=== PATIENT | male | born 1990 | race African-American/Black ===

== ENCOUNTER 2023-07-06 09:25 | Outpatient (CLI) | payer OTHER, SELFPAY ==
[2023-07-06 10:15] LABS: Creatine Kinase 166 U/L (55-170)
[2023-07-06 10:19] LABS: Erythrocyte Sedimentation Rate 20 mm/hr (0-20)
== END 2023-07-06 09:26 | disposition home or self-care (01) ==
LOC: ANHLAB 09:28
PROVIDERS: Visit Provider Internal Medicine
DX: M19.90 Unspecified osteoarthritis, unspecified site (principal); M60.9 Myositis, unspecified; M62.82 Rhabdomyolysis
CPT/HCPCS: 36415; 82085; 82550; 85652; 86140

== ENCOUNTER 2023-10-02 09:49 | Outpatient (CLI) | payer OTHER, SELFPAY ==
[2023-10-02 10:34] LABS: CRP 2.2 mg/dL (<1.0); Creatine Kinase 381 U/L (55-170)
[2023-10-08 04:55] LABS: Aldolase 4.9 U/L (<=8.1)
== END 2023-10-02 09:50 | disposition home or self-care (01) ==
LOC: ANHLAB 09:51
PROVIDERS: Visit Provider Internal Medicine
DX: M60.9 Myositis, unspecified (principal); M62.82 Rhabdomyolysis
CPT/HCPCS: 36415; 82085; 82550; 86140